=== PATIENT | female | born 1990 | race Caucasian/White ===

== ENCOUNTER 2018-02-20 14:11 | Emergency (ER) | payer OTHER ==
[~2018-02-20] VITALS: Ht 157.5 cm; Wt 65.3 kg
[2018-02-20 14:22] VITALS: Ht 157.5 cm; Wt 65.3 kg
[2018-02-20 16:22] VITALS: BP 125/66
== END 2018-02-20 16:22 | disposition home or self-care (01) ==
LOC: ED 14:11
DX: R21 Rash and other nonspecific skin eruption (principal); E03.9 Hypothyroidism, unspecified

== ENCOUNTER 2018-05-30 23:14 | Emergency (ER) | payer OTHER ==
[~2018-05-30] VITALS: Ht 157.5 cm; Wt 69.4 kg
[2018-05-31 00:30] VITALS: BP 122/67
== END 2018-05-31 00:30 | disposition home or self-care (01) ==
LOC: ED 23:14
DX: N39.0 Urinary tract infection, site not specified (principal); E03.9 Hypothyroidism, unspecified

== ENCOUNTER 2018-12-21 01:15 | Emergency (ER) | payer OTHER ==
[~2018-12-21] VITALS: Ht 160 cm; Wt 69.9 kg
[2018-12-21 01:22] VITALS: Ht 160 cm; Wt 69.9 kg
[2018-12-21 01:55] VITALS: BP 107/64
== END 2018-12-21 01:55 | disposition home or self-care (01) ==
LOC: ED 01:15
DX: H66.92 Otitis media, unspecified, left ear (principal)

== ENCOUNTER 2020-09-19 20:35 | Emergency (ER) | payer OTHER ==
[~2020-09-19] VITALS: Ht 157.5 cm; Wt 74.4 kg
[2020-09-19 20:54] VITALS: Ht 157.5 cm; Wt 74.4 kg
[2020-09-20 00:22] LABS: CALCIUM 8.6 mg/dL (8.5-10.1); CARBON DIOXIDE 28.5 mmol/L (21-32); CHLORIDE SERUM 105 mmol/L (98-107); CREATININE SERUM 0.9 mg/dL (0.6-1.0); GFR1 > 60 mL/min; GLUCOSE SERUM 97 mg/dL (74-106); POTASSIUM SERUM 3.7 mmol/L (3.5-5.1); SODIUM SERUM 140 mmol/L (136-145)
[2020-09-20 00:26] LABS: ALBUMIN 3.8 g/dL (3.4-5.0); ALKALINE PHOSPHATASE 106 U/L (46-116); ALT/SGPT 20 U/L (14-59); AST/SGOT 18 U/L (15-37); BILIRUBIN TOTAL 0.4 mg/dL (0.20-1.00); TOTAL PROTEIN, SERUM 7.3 g/dL (6.4-8.2)
[2020-09-20 00:33] LABS: T3 TOTAL 0.92 ng/mL
[2020-09-20 00:34] LABS: FREE T4 1.04 ng/dL (0.76-1.46); FREE THYROXINE INDEX 2.8 ug/dL (1.4-4.5); T4(THYROXINE) 7.7 ug/dL (4.7-13.3)
[2020-09-20 01:18] VITALS: BP 120/68
== END 2020-09-20 01:18 | disposition home or self-care (01) ==
LOC: ED 20:35
PROVIDERS: Emergency Medicine
DX: R20.2 Paresthesia of skin (principal); E03.9 Hypothyroidism, unspecified
CPT/HCPCS: 84439